=== PATIENT | female | born 1980 | race Caucasian/White ===

== ENCOUNTER 2024-03-10 16:04 | Emergency (ER) | payer SELFPAY ==
[2024-03-10] MEDS ORDERED: Cyclobenzaprine 10 MG TAB ONE (16:27)
[2024-03-10] MEDS ORDERED: Ketorolac Tromethamine 30 MG (1 mL) VIAL ONE (16:28)
== END 2024-03-10 16:40 | disposition home or self-care (01) ==
LOC: BURERS 16:04
DX: M54.2 Cervicalgia (principal); M62.838 Other muscle spasm; F17.210 Nicotine dependence, cigarettes, uncomplicated
CPT/HCPCS: 96372; 99283; J1885